=== PATIENT | male | born 1970 | race Two or more races ===

== ENCOUNTER 2022-04-02 22:44 | Inpatient (IN) | payer BC ==
[~2022-04-02] VITALS: Ht 188 cm; Wt 105.7 kg
[2022-04-02 23:50] LABS: BASOPHILS % 0.8 % (0.0-2.0); EOSINOPHILS % 1.3 % (0.0-5.0); HEMOGLOBIN. 12.5 g/dL (14.0-18.0); LYMPHOCYTES % 44.6 % (20.0-50.0); MEAN CORPUSCULAR HEMOGLOBIN 28.8 pg (28.0-32.0); MEAN CORPUSCULAR VOLUME 87.9 fL (80.0-94.0); MEAN PLATELET VOLUME 9.2 fl (7.4-10.4); NEUTROPHILS % 40.3 % (40.0-76.0); PLATELET 142 x1000/uL (130-400); RED BLOOD CELL COUNT 4.33 mill/uL (4.7-6.1); RED CELL DISTRIBUTION WIDTH 13.5 % (11.6-14.6)
[2022-04-03 00:03] LABS: CHLORIDE 108 mEq/L (98-107)
[2022-04-03 02:46] LABS: T4 FREE 0.74 ng/dL (0.76-1.46)
[2022-04-03] MEDS ORDERED: ONDANSETRON HCL 4MG/2ML INJ IV PRN (10:45)
[2022-04-03] MEDS ORDERED: ACETAMINOPHEN 325MG TABLET PO PRN ×2 (10:45)
[2022-04-03] MEDS ORDERED: ZOLPIDEM TARTRATE 5MG TABLET PO PRN (10:45)
[2022-04-03] MEDS ORDERED: DIPHENHYDRAMINE 50MG/ML VIAL IV PRN (10:45)
[2022-04-03] MEDS ORDERED: MAGNESIUM/ALUMINUM HYDROXIDE/SIMETHICONE 30ML UDC PO PRN (10:45)
[2022-04-03 10:49] VITALS: BP 136/62
[2022-04-03 11:09] VITALS: BP 134/64
[2022-04-03 11:43] LABS: *AMPHETAMINES SCREEN URINE NEGATIVE (NEGATIVE); *BARBITURATES SCREEN URINE NEGATIVE (NEGATIVE); *BENZODIAZEPINES SCREEN URINE NEGATIVE (NEGATIVE); *COCAINE SCREEN URINE NEGATIVE (NEGATIVE); CANNABINOID URINE SCREEN NEGATIVE (NEGATIVE); METHADONE URINE SCREEN NEGATIVE (NEGATIVE); OPIATES URINE SCREEN NEGATIVE (NEGATIVE); PHENCYCLIDINE URINE SCREEN NEGATIVE (NEGATIVE)
[2022-04-03 11:48] VITALS: BP 122/72
[2022-04-03] MEDS: SODIUM CHLORIDE 0.9% INJ 3ML FLUSH IVF SCH ×2 (13:11→21:55)
[2022-04-03 14:00] VITALS: BP 104/56
[2022-04-03 15:45] VITALS: BP 118/69
[2022-04-03] MEDS ORDERED: REGADENOSON 0.4 MG/5 ML IV ONE (16:30)
[2022-04-03 20:00] VITALS: BP 123/78
[2022-04-04] VITALS: BP 104/65
[2022-04-04 04:00] VITALS: BP 106/69
[2022-04-04] MEDS: SODIUM CHLORIDE 0.9% INJ 3ML FLUSH IVF SCH (05:53)
[2022-04-04 06:35] LABS: BASOPHILS % 0.4 % (0.0-2.0); EOSINOPHILS % 1.2 % (0.0-5.0); HEMATOCRIT. 39.2 % (42.0-52.0); HEMOGLOBIN. 13.2 g/dL (14.0-18.0); MEAN CORPUSCULAR HEMOGLOBIN 29.2 pg (28.0-32.0); MEAN CORPUSCULAR VOLUME 86.5 fL (80.0-94.0); MEAN PLATELET VOLUME 9.8 fl (7.4-10.4); MONOCYTES % 11.8 % (2.0-8.0); NEUTROPHILS % 47.6 % (40.0-76.0); PLATELET 152 x1000/uL (130-400); RED BLOOD CELL COUNT 4.53 mill/uL (4.7-6.1); RED CELL DISTRIBUTION WIDTH 13.1 % (11.6-14.6)
[2022-04-04 06:55] LABS: CHLORIDE 106 mEq/L (98-107)
[2022-04-04 07:05] LABS: HDL CHOLESTEROL 72 mg/dL (40-59); LDL CHOLESTEROL 90 mg/dL (5-100)
[2022-04-04 08:00] VITALS: BP 101/68
[2022-04-04 12:00] VITALS: BP 127/69
[2022-04-04] MEDS ORDERED: NITROGLYCERIN SPRAY/4.9GM CAN TL ONE (13:00)
[2022-04-04] MEDS ORDERED: IOHEXOL-350 100 ML BOTTLE ONE (13:10)
[2022-04-04 14:49] VITALS: BP 128/68
[2022-04-04 15:14] VITALS: BP 126/68
== END 2022-04-04 15:40 | disposition still patient (30) | DRG 313 ==
LOC: ER 22:44 → 7EST 04-03 04:24 → 5EST 04-03 11:01
PROVIDERS: ADMIT Internal Medicine; ATTEND Internal Medicine
DX: R07.89 Other chest pain (principal); R00.1 Bradycardia, unspecified; D64.9 Anemia, unspecified; D72.819 Decreased white blood cell count, unspecified; I45.10 Unspecified right bundle-branch block
CPT/HCPCS: 36415; 71045; 75571; 80053; 80061; 80305; 83735; 83880; 84439; 84443; 84481; 84484; 85025; 93005; 93306; 99285; Q9967

== ENCOUNTER 2022-05-21 06:38 | Emergency (ER) | payer BC ==
[~2022-05-21] VITALS: Ht 185.4 cm; Wt 106.2 kg
[2022-05-21] MEDS ORDERED: HYDROCODONE/ACETAMINOPHEN 5/325MG TABLET PO STA (07:12)
[2022-05-21 08:50] LABS: BASOPHILS % 0.1 % (0.0-2.0); HEMATOCRIT. 44.8 % (42.0-52.0); HEMOGLOBIN. 14.4 g/dL (14.0-18.0); LYMPHOCYTES % 9.6 % (20.0-50.0); MEAN CORPUSCULAR HEMOGLOBIN 28.8 pg (28.0-32.0); MEAN CORPUSCULAR VOLUME 89.5 fL (80.0-94.0); MEAN PLATELET VOLUME 9.3 fl (7.4-10.4); MONOCYTES % 5.5 % (2.0-8.0); NEUTROPHILS % 84.8 % (40.0-76.0); PLATELET 145 x1000/uL (130-400); RED CELL DISTRIBUTION WIDTH 13.4 % (11.6-14.6)
[2022-05-21 08:54] VITALS: BP 100/48
[2022-05-21 09:01] LABS: CHLORIDE 109 mEq/L (98-107)
[2022-05-21 09:11] LABS: CREATINE KINASE 474 IU/L (39-308)
[2022-05-21] MEDS ORDERED: TETANUS, DIPHTHERIA, PERTUSSIS VAC/PF 0.5ML (>10YR OLD) IM ONE (10:30)
[2022-05-21] MEDS ORDERED: LIDOCAINE HCL/EPINEPHRINE 1%-EPI 1:100,000 20 ML VIAL INFIL ONE (10:30)
[2022-05-21] MEDS ORDERED: LIDOCAINE HCL/EPINEPHRINE 1%-EPI 1:100,000 30 ML VIAL INFIL NR (11:30)
[2022-05-21] MEDS ORDERED: CEPH500C2 MT (12:31)
[2022-05-21] MEDS ORDERED: IBUP-2029 MT (12:31)
== END 2022-05-21 13:47 | disposition home or self-care (01) ==
LOC: ER 06:38
DX: S20.219A Contusion of unspecified front wall of thorax, initial encounter (principal); S81.812A Laceration without foreign body, left lower leg, initial encounter; S80.12XA Contusion of left lower leg, initial encounter; V49.9XXA Car occupant (driver) (passenger) injured in unspecified traffic accident, initial encounter; Y93.9 Activity, unspecified; Y92.410 Unspecified street and highway as the place of occurrence of the external cause
CPT/HCPCS: 12002; 36415; 71045; 73552; 80053; 82550; 84484; 85025; 90471; 90715; 93005; 99285; J3490